=== PATIENT | male | born 1960 | race Caucasian/White ===

== ENCOUNTER 2024-12-19 12:21 | Outpatient (CLI) | payer MEDICARE, OTHER, SELFPAY ==
--- NOTE | 2024-12-19 12:27 | XR_ITS ---
FINAL REPORT CLINICAL HISTORY: left foot - stepped on nail COMPARISON: None FINDINGS: LEFT FOOT Three views of the left foot demonstrate no acute fracture or dislocation. The visualized joint spaces are normally aligned. A large plantar calcaneal spur is present. There is an ossific density adjacent to the lateral left second metatarsal head, that may represent a prior fracture fragment. No acute bony abnormality is identified. No radiopaque foreign body is identified. IMPRESSION: No acute bony abnormality. Reviewed, Interpreted and Dictated by Noel Robles MD Transcribed by Annabel Lezama Authenticated and . [facility]
== END 2024-12-19 23:59 | disposition home or self-care (01) ==
LOC: RAD 12:24
PROVIDERS: Visit Provider Student in an Organized Health Care Education/Training Program
DX: S91.332A Puncture wound without foreign body, left foot, initial encounter (principal); W45.0XXA Nail entering through skin, initial encounter; M77.32 Calcaneal spur, left foot
CPT/HCPCS: 73630